=== PATIENT | male | born 1985 | race African-American/Black ===

== ENCOUNTER 2024-07-11 22:54 | Inpatient (IN) | payer SELFPAY ==
[2024-07-12] MEDS ORDERED: EPINEPHrine 1 MG/ML VIAL ONE (00:33)
[2024-07-12] MEDS ORDERED: cefTRIAXone (ROCEPHIN) 2 GM VIAL ONE (00:34)
[2024-07-12] MEDS ORDERED: Albuterol 2.5 MG (3 mL) NEB ONE (00:34)
[2024-07-12] MEDS ORDERED: Sodium Chloride 0.9% 100 ML ONE (00:37)
[2024-07-12 01:12] LABS: #Basophils Less than 0.03 10x3/uL (0.0-0.2); #Eosinophils Less than 0.03 10x3/uL (0.0-0.7); %Basophils 0.1 % (0.0-1.0); %Lymphocytes 6.7 % (21.0-51.0); %Monocytes 5.8 % (0.0-10.0); Hematocrit 45.3 % (42.0-52.0); Hemoglobin 15.1 g/dL (14.0-18.0); Mean Corpuscular HGB CONC 33.3 g/dL (32.0-36.0); Mean Corpuscular Hemoglobin 29.7 pg (27.0-31.0); Mean Corpuscular Volume 89.2 fL (78.0-98.0); Mean Platelet Volume 9.3 fL (7.4-10.4); Platelet Count 289 10x3/uL (130-400); RBC Distribution Width 13.1 % (11.5-14.5); Red Blood Cell (RBC) Count 5.08 mill/uL (4.70-6.10)
[2024-07-12 01:32] LABS: ALT (SGPT) 23 U/L (8-55); Alkaline Phosphatase 60 U/L (40-110); Anion Gap 16 mmol/L (10-20); BUN (Urea Nitrogen) 11 mg/dL (8.9-20.6); Bilirubin, Total 0.3 mg/dL (0.2-1.2); Calc. Creatinine Clearance 0 mL/min (70-130); Calcium 8.9 mg/dL (7.8-10.44); Carbon Dioxide 20 mmol/L (22-29); Chloride 107 mmol/L (98-107); Estimated GFR 101; Globulin 3.6 g/dL (2.4-3.5); Glucose 121 mg/dL (70-105); Magnesium 1.8 mg/dL (1.6-2.6); Potassium 4.2 mmol/L (3.5-5.1); Protein, Total 7.6 g/dL (6.0-8.3); Sodium 139 mmol/L (136-145)
[2024-07-12 02:15] LABS: Troponin I Less than 0.010 ng/mL (< 0.028)
[2024-07-12 02:53] LABS: AST (SGOT) 35 U/L (5-34)
[2024-07-12] MEDS ORDERED: Ondansetron PF 4 MG/2 ML Vial IVP PRN (04:15)
[2024-07-12] MEDS: Acetaminophen 325 MG TAB PO PRN (04:50)
[2024-07-12] MEDS: methylPREDNISolone Sod Succ 40 MG VIAL IVP SCH ×2 (04:50→11:53)
[2024-07-12] MEDS ORDERED: methylPREDNISolone Sod Succ 40 MG VIAL ONE (05:03)
[2024-07-12] MEDS ORDERED: Lorazepam 2 MG/ML VIAL ONE (05:03)
[2024-07-12] MEDS ORDERED: Acetaminophen 325 MG TAB ONE (05:03)
[2024-07-12] MEDS: Mometasone 200 MCG/Formoterol 5 MCG 120 PUFF INHALER INH SCH (06:30)
[2024-07-12] MEDS: Ipratropium/Albuterol 3 ML NEB NEB SCH (06:30)
[2024-07-12] MEDS: methylPREDNISolone Sod Succ/PF 125 MG/2 ML VIAL IVP SCH (06:49)
[2024-07-12] MEDS: Lorazepam 2 MG/ML VIAL SLOW IVP PRN (08:50)
[2024-07-12] MEDS: Enoxaparin 40 MG (0.4 mL) SYRINGE SC SCH (08:50)
[2024-07-12] MEDS: guaiFENesin/DM ER PO SCH (08:50)
[2024-07-12] MEDS: hydrALAZINE 20 MG/ML VIAL SLOW IVP PRN (09:39)
[2024-07-12] MEDS: FLU (Fluarix Triv) TS24-25(6MOS UP)/PF 45 MCG/0.5 ML Syringe IM ONE (11:53)
[2024-07-12] MEDS: Azithromycin 500 MG in Sodium Chloride 0.9% 250 ML 250 ML IVPB SCH (21:03)
[2024-07-13 02:50] LABS: #Basophils Less than 0.03 10x3/uL (0.0-0.2); #Eosinophils Less than 0.03 10x3/uL (0.0-0.7); %Basophils 0.1 % (0.0-1.0); %Lymphocytes 5.1 % (21.0-51.0); %Monocytes 6.1 % (0.0-10.0); %Neutrophils 88.4 % (42.0-75.0); Hematocrit 43.9 % (42.0-52.0); Hemoglobin 14.4 g/dL (14.0-18.0); Mean Corpuscular HGB CONC 32.8 g/dL (32.0-36.0); Mean Corpuscular Hemoglobin 29.5 pg (27.0-31.0); Mean Platelet Volume 9.5 fL (7.4-10.4); Platelet Count 269 10x3/uL (130-400); RBC Distribution Width 13.5 % (11.5-14.5); Red Blood Cell (RBC) Count 4.88 mill/uL (4.70-6.10)
[2024-07-13 03:50] LABS: Anion Gap 11 mmol/L (10-20); BUN (Urea Nitrogen) 21 mg/dL (8.9-20.6); Calc. Creatinine Clearance 109 mL/min (70-130); Calcium 8.8 mg/dL (7.8-10.44); Carbon Dioxide 27 mmol/L (22-29); Chloride 102 mmol/L (98-107); Estimated GFR 100; Glucose 121 mg/dL (70-105); Potassium 4.4 mmol/L (3.5-5.1); Sodium 136 mmol/L (136-145)
[2024-07-13 05:14] VITALS: BMI 25.7
[2024-07-13] MEDS: Albuterol 2.5 MG (3 mL) NEB NEB PRN (07:19)
[2024-07-13] MEDS: Budesonide 0.5 MG/2 ML NEB INH SCH (07:21)
[2024-07-13] MEDS: Arformoterol 15 MCG/2 ML NEB NEB SCH (07:21)
[2024-07-13] MEDS: Montelukast Sodium 10 mg Tablet PO SCH (20:29)
[2024-07-13] MEDS: Benzonatate 100 MG CAP PO PRN (23:14)
[2024-07-14 05:29] LABS: #Basophils Less than 0.03 10x3/uL (0.0-0.2); #Eosinophils Less than 0.03 10x3/uL (0.0-0.7); %Basophils 0.1 % (0.0-1.0); %Lymphocytes 4.4 % (21.0-51.0); %Monocytes 6.9 % (0.0-10.0); %Neutrophils 88.1 % (42.0-75.0); Hematocrit 40.4 % (42.0-52.0); Hemoglobin 13.4 g/dL (14.0-18.0); Mean Corpuscular HGB CONC 33.2 g/dL (32.0-36.0); Mean Corpuscular Hemoglobin 29.5 pg (27.0-31.0); Platelet Count 270 10x3/uL (130-400); RBC Distribution Width 13.4 % (11.5-14.5); Red Blood Cell (RBC) Count 4.54 mill/uL (4.70-6.10)
[2024-07-14 05:49] LABS: Anion Gap 13 mmol/L (10-20); BUN (Urea Nitrogen) 26 mg/dL (8.9-20.6); Calc. Creatinine Clearance 131 mL/min (70-130); Calcium 8.6 mg/dL (7.8-10.44); Carbon Dioxide 25 mmol/L (22-29); Chloride 103 mmol/L (98-107); Estimated GFR 94; Glucose 129 mg/dL (70-105); Potassium 4.1 mmol/L (3.5-5.1); Sodium 137 mmol/L (136-145)
[2024-07-14] MEDS: methylPREDNISolone Sod Succ 40 MG VIAL IVP SCH (09:30)
[2024-07-14] MEDS: Famotidine 20 MG TAB PO SCH (20:24)
[2024-07-15 05:52] LABS: #Basophils Less than 0.03 10x3/uL (0.0-0.2); #Eosinophils Less than 0.03 10x3/uL (0.0-0.7); %Basophils 0.1 % (0.0-1.0); %Lymphocytes 7.6 % (21.0-51.0); %Monocytes 9.7 % (0.0-10.0); %Neutrophils 81.8 % (42.0-75.0); Hematocrit 40.6 % (42.0-52.0); Hemoglobin 13.6 g/dL (14.0-18.0); Mean Corpuscular HGB CONC 33.5 g/dL (32.0-36.0); Mean Corpuscular Hemoglobin 29.7 pg (27.0-31.0); Mean Corpuscular Volume 88.6 fL (78.0-98.0); Mean Platelet Volume 9.8 fL (7.4-10.4); Platelet Count 275 10x3/uL (130-400); RBC Distribution Width 13.2 % (11.5-14.5); Red Blood Cell (RBC) Count 4.58 mill/uL (4.70-6.10)
[2024-07-15 06:18] LABS: Anion Gap 14 mmol/L (10-20); BUN (Urea Nitrogen) 15 mg/dL (8.9-20.6); Calc. Creatinine Clearance 140 mL/min (70-130); Calcium 8.5 mg/dL (7.8-10.44); Carbon Dioxide 24 mmol/L (22-29); Chloride 107 mmol/L (98-107); Estimated GFR 101; Glucose 112 mg/dL (70-105); Potassium 3.5 mmol/L (3.5-5.1); Sodium 141 mmol/L (136-145)
[2024-07-15 10:58] VITALS: BP 122/91; TEMP 97.7
== END 2024-07-15 11:01 | disposition home or self-care (01) | DRG 189 ==
LOC: ERS 22:54 → ERHOLD 07-12 02:25 → IMCU/EMU 07-12 07:58 → MSONC 07-14 14:59
PROVIDERS: ADMIT Internal Medicine; ATTEND Internal Medicine
PROC: 3E033XZ Introduction of Vasopressor into Peripheral Vein, Percutaneous Approach (ICD-10-PCS; principal; 2024-07-12)
PROC: 5A09457 Assistance with Respiratory Ventilation, 24-96 Consecutive Hours, Continuous Positive Airway Pressure (ICD-10-PCS; 2024-07-12)
DX: J96.21 Acute and chronic respiratory failure with hypoxia (principal); J45.901 Unspecified asthma with (acute) exacerbation; F17.210 Nicotine dependence, cigarettes, uncomplicated; D72.829 Elevated white blood cell count, unspecified; I10 Essential (primary) hypertension; Z79.899 Other long term (current) drug therapy
CPT/HCPCS: 36415; 36416; 71045; 80048; 80053; 83605; 83735; 84484; 85025; 93005; 94640; 94660; 96372; 96374; 96375; J0171; J0360; J0456; J0696; J1650; J2060; J2919; J7050; J7611; J7620; J7626